=== PATIENT | male | born 1980 | race American Indian/Alaskan Native ===

== ENCOUNTER 2017-04-16 20:57 | Inpatient (IN) | payer OTHER ==
[~2017-04-16] VITALS: Ht 177.8 cm; Wt 87.8 kg
[2017-04-17 00:02] VITALS: BP 164/90
[2017-04-17] MEDS ORDERED: SODIUM CHLORIDE 0.9% 1,000 ML IV SCH (02:31)
[2017-04-17] MEDS ORDERED: DEXTROSE 4 GM TAB.CHEW PO PRN (03:00)
[2017-04-17] MEDS ORDERED: DEXTROSE 50%, 50ML SYRINGE IVPush PRN (03:00)
[2017-04-17] MEDS ORDERED: GLUCAGON 1 MG IM PRN (03:00)
[2017-04-17] MEDS ORDERED: BISACODYL 10 MG SUPP PR PRN (03:00)
[2017-04-17] MEDS ORDERED: ZOLPIDEM 5MG TABLET PO PRN (03:00)
[2017-04-17] MEDS ORDERED: DOCUSATE 100 MG CAPSULE PO PRN (03:00)
[2017-04-17] MEDS ORDERED: ONDANSETRON 2MG/ML, 2ML IVPush PRN (03:00)
[2017-04-17] MEDS: PLEASE ENTER ALLERGIES MC SCH ×10 (03:00→07:00)
[2017-04-17] MEDS: PIPERACILLIN/TAZO/PMX 3.375GM 50 ML IV SCH ×4 (03:26→21:58)
[2017-04-17] MEDS: ENOXAPARIN 40 MG/0.4 ML SQ SCH (03:28)
[2017-04-17] MEDS: INSULIN ASPART 100 UNITS/ML, PEN SQ-INSULIN SCH ×5 (04:06→22:25)
[2017-04-17] MEDS: POTASSIUM CHLORIDE 10 MEQ in SODIUM CHLORIDE 0.9% 1,000 ML IV SCH ×2 (04:16→18:18)
[2017-04-17 04:27] VITALS: BP 158/79
[2017-04-17 06:08] LABS: ASPARTATE AMINO TRANSFERASE 19 U/L (15-37); BLOOD UREA NITROGEN 9 mg/dL (7-18)
[2017-04-17] MEDS: HYDROcodone/APAP 5/325 TABLET PO PRN ×3 (06:58→19:46)
[2017-04-17 08:35] VITALS: BP 154/79
[2017-04-17] MEDS ORDERED: LABETALOL 5MG/ML, 20ML IVPush PRN (09:30)
[2017-04-17] MEDS ORDERED: SODIUM CHLORIDE 0.9% 1,000ML IVBOLUS ONE (11:00)
[2017-04-17] MEDS: SODIUM CHLORIDE FLUSH 10ML SYR IVF SCH ×2 (11:19→21:00)
[2017-04-17] MEDS: INSULIN DETEMIR 100 UNITS/ML, PEN SQ-INSULIN SCH ×2 (11:20→22:26)
[2017-04-17 12:37] VITALS: BP 154/74
[2017-04-17 21:54] VITALS: BP 130/86
[2017-04-18] MEDS: HYDROcodone/APAP 5/325 TABLET PO PRN ×4 (00:58→21:18)
[2017-04-18] MEDS: ENOXAPARIN 40 MG/0.4 ML SQ SCH (03:15)
[2017-04-18] MEDS: PIPERACILLIN/TAZO/PMX 3.375GM 50 ML IV SCH ×4 (03:16→21:18)
[2017-04-18 03:24] VITALS: BP 136/82
[2017-04-18 05:09] LABS: BLOOD UREA NITROGEN 9 mg/dL (7-18)
[2017-04-18 05:13] LABS: ASPARTATE AMINO TRANSFERASE 40 U/L (15-37)
[2017-04-18 07:00] VITALS: BP 154/94
[2017-04-18] MEDS: INSULIN DETEMIR 100 UNITS/ML, PEN SQ-INSULIN SCH ×3 (07:44→16:56)
[2017-04-18] MEDS: INSULIN ASPART 100 UNITS/ML, PEN SQ-INSULIN SCH ×4 (07:44→21:29)
[2017-04-18] MEDS ORDERED: HUM100VI SQ (09:30)
[2017-04-18] MEDS ORDERED: INSU100C5 SQ-INSULIN (09:30)
[2017-04-18] MEDS ORDERED: CETI10TA24 PO (09:30)
[2017-04-18] MEDS: SODIUM CHLORIDE FLUSH 10ML SYR IVF SCH ×2 (09:36→21:18)
[2017-04-18 13:49] VITALS: BP 136/77
[2017-04-18] MEDS: POLYETHYLENE GLYCOL 17 GM PACKET PO PRN (16:00)
[2017-04-18 18:41] VITALS: BP 143/77
[2017-04-19] MEDS: HYDROcodone/APAP 5/325 TABLET PO PRN ×2 (01:45→06:56)
[2017-04-19 01:53] VITALS: BP 148/81
[2017-04-19] MEDS: PIPERACILLIN/TAZO/PMX 3.375GM 50 ML IV SCH ×3 (03:25→15:37)
[2017-04-19] MEDS: ENOXAPARIN 40 MG/0.4 ML SQ SCH (03:25)
[2017-04-19 05:35] LABS: ASPARTATE AMINO TRANSFERASE 56 U/L (15-37); BLOOD UREA NITROGEN 10 mg/dL (7-18)
[2017-04-19 06:49] VITALS: BP 177/83
[2017-04-19] MEDS: hydrALAzine 20 MG/ML, 1ML IVPush PRN (07:23)
[2017-04-19] MEDS: INSULIN ASPART 100 UNITS/ML, PEN SQ-INSULIN SCH ×4 (07:41→21:00)
[2017-04-19] MEDS: SODIUM CHLORIDE FLUSH 10ML SYR IVF SCH ×2 (09:00→21:44)
[2017-04-19] MEDS: SODIUM CHLORIDE 0.9% 1,000 ML IV SCH ×2 (09:41→23:34)
[2017-04-19] MEDS: INSULIN ASPART 70/30 100U/ML, PEN SQ-INSULIN SCH ×2 (09:43→21:43)
[2017-04-19] MEDS: ACETAMINOPHEN 325 MG TABLET PO PRN ×2 (11:20→15:44)
[2017-04-19 12:58] VITALS: BP 140/76
[2017-04-19] MEDS: CIPROFLOXACIN/PMX 400MG/200ML 200 ML IV SCH (14:29)
[2017-04-19 18:25] VITALS: BP 137/69
[2017-04-19 20:36] LABS: PATH.CAST-FLAG NOT PRESENT; SPERM-FLAG NOT PRESENT; SRC-FLAG NOT PRESENT; XTAL-FLAG NOT PRESENT; YLC-FLAG NOT PRESENT
[2017-04-19] MEDS: IBUPROFEN 200 MG TABLET PO PRN (21:42)
[2017-04-20] MEDS: CIPROFLOXACIN/PMX 400MG/200ML 200 ML IV SCH (02:44)
[2017-04-20] MEDS: ENOXAPARIN 40 MG/0.4 ML SQ SCH (02:44)
[2017-04-20 02:54] VITALS: BP 144/82
[2017-04-20 05:32] LABS: ASPARTATE AMINO TRANSFERASE 48 U/L (15-37); BLOOD UREA NITROGEN 13 mg/dL (7-18)
[2017-04-20] MEDS: IBUPROFEN 200 MG TABLET PO PRN ×2 (06:32→21:16)
[2017-04-20 06:34] VITALS: BP 153/97
[2017-04-20 07:40] VITALS: BP 177/90
[2017-04-20] MEDS: ACETAMINOPHEN 325 MG TABLET PO PRN (08:00)
[2017-04-20] MEDS: hydrALAzine 20 MG/ML, 1ML IVPush PRN (08:00)
[2017-04-20] MEDS: INSULIN ASPART 100 UNITS/ML, PEN SQ-INSULIN SCH ×4 (08:01→21:00)
[2017-04-20] MEDS: INSULIN ASPART 70/30 100U/ML, PEN SQ-INSULIN SCH ×2 (08:01→18:31)
[2017-04-20] MEDS: POLYETHYLENE GLYCOL 17 GM PACKET PO PRN (08:26)
[2017-04-20] MEDS: SODIUM CHLORIDE FLUSH 10ML SYR IVF SCH ×2 (08:27→21:00)
[2017-04-20] MEDS: SODIUM CHLORIDE 0.9% 1,000 ML IV SCH ×2 (11:00→21:00)
[2017-04-20] MEDS ORDERED: SODIUM CHLORIDE 0.9% 1,000ML IVBOLUS ONE (11:30)
[2017-04-20] MEDS ORDERED: OMNIPAQUE 350 MG/ML, 100ML BOTTLE ONE (13:05)
[2017-04-20 14:40] VITALS: BP 135/73
[2017-04-20] MEDS ORDERED: LEVOFLOXACIN/PMX 500MG/100ML 100 ML IV SCH (15:00)
[2017-04-20] MEDS ORDERED: HYDR2TAB29 PO (15:12)
[2017-04-20] MEDS: CEFTRIAXONE PMX 1GM/50ML 50 ML IV SCH (15:19)
[2017-04-20 19:30] VITALS: BP 134/78
[2017-04-21 02:38] VITALS: BP 144/86
[2017-04-21] MEDS: ENOXAPARIN 40 MG/0.4 ML SQ SCH ×2 (03:13→22:53)
[2017-04-21 05:49] LABS: BLOOD UREA NITROGEN 9 mg/dL (7-18)
[2017-04-21 05:53] LABS: ASPARTATE AMINO TRANSFERASE 21 U/L (15-37)
[2017-04-21] MEDS: INSULIN ASPART 100 UNITS/ML, PEN SQ-INSULIN SCH ×4 (07:12→21:00)
[2017-04-21 07:23] VITALS: BP 144/82
[2017-04-21] MEDS: INSULIN ASPART 70/30 100U/ML, PEN SQ-INSULIN SCH ×2 (09:04→16:33)
[2017-04-21] MEDS: LEVOFLOXACIN/PMX 500MG/100ML 100 ML IV SCH (09:04)
[2017-04-21] MEDS: SODIUM CHLORIDE FLUSH 10ML SYR IVF SCH ×2 (09:05→21:00)
[2017-04-21] MEDS: IBUPROFEN 200 MG TABLET PO PRN ×2 (10:19→18:17)
[2017-04-21] MEDS: ACETAMINOPHEN 325 MG TABLET PO PRN ×2 (11:51→22:25)
[2017-04-21 12:39] VITALS: BP 166/80
[2017-04-21] MEDS: CEFTRIAXONE PMX 1GM/50ML 50 ML IV SCH (15:04)
[2017-04-21] MEDS: LISINOPRIL 5 MG TABLET PO SCH (15:05)
[2017-04-21] MEDS: SODIUM CHLORIDE 0.9% 1,000 ML IV SCH (18:17)
[2017-04-21 18:24] VITALS: BP 134/75
[2017-04-22 00:23] VITALS: BP 145/76
[2017-04-22] MEDS: SODIUM CHLORIDE 0.9% 1,000 ML IV SCH (01:47)
[2017-04-22] MEDS: ACETAMINOPHEN 325 MG TABLET PO PRN (06:26)
[2017-04-22] MEDS: INSULIN ASPART 100 UNITS/ML, PEN SQ-INSULIN SCH ×3 (06:27→16:33)
[2017-04-22 06:38] VITALS: BP 150/83
[2017-04-22] MEDS: INSULIN ASPART 70/30 100U/ML, PEN SQ-INSULIN SCH (08:24)
[2017-04-22] MEDS: LEVOFLOXACIN/PMX 500MG/100ML 100 ML IV SCH (08:25)
[2017-04-22] MEDS: LISINOPRIL 5 MG TABLET PO SCH (08:25)
[2017-04-22] MEDS: SODIUM CHLORIDE FLUSH 10ML SYR IVF SCH (08:25)
[2017-04-22] MEDS ORDERED: HYDR-3240 PO (15:05)
[2017-04-22] MEDS ORDERED: LEVO500T33 PO (15:05)
[2017-04-22] MEDS ORDERED: LISI5TAB7 PO (15:05)
[2017-04-22 15:53] VITALS: BP 149/85
[2017-04-22 17:28] VITALS: BP 147/87
[2017-04-23] MEDS ORDERED: LEVOFLOXACIN 500 MG TABLET PO SCH (09:00)
== END 2017-04-22 17:35 | disposition home or self-care (01) | DRG 871 ==
LOC: 4NOR 23:42
PROC: 0T9B70Z Drainage of Bladder with Drainage Device, Via Natural or Artificial Opening (ICD-10-PCS; principal; 2017-04-19)
DX: A41.9 Sepsis, unspecified organism (principal); N17.0 Acute kidney failure with tubular necrosis; E87.1 Hypo-osmolality and hyponatremia; R65.20 Severe sepsis without septic shock; I10 Essential (primary) hypertension; N45.3 Epididymo-orchitis; N43.3 Hydrocele, unspecified; K76.0 Fatty (change of) liver, not elsewhere classified; E10.9 Type 1 diabetes mellitus without complications; K59.00 Constipation, unspecified; Z82.3 Family history of stroke; Z79.4 Long term (current) use of insulin; Z82.49 Family history of ischemic heart disease and other diseases of the circulatory system; Z87.891 Personal history of nicotine dependence; Z83.3 Family history of diabetes mellitus
CPT/HCPCS: 36415; 71010; 74177; 76700; 76870; 80053; 81001; 81003; 82962; 83036; 83605; 84145; 85025; 87040; 87491; 87591; 93306; J0696; J0744; J1650; J1815; J1956; J2543; J3480; Q9967; J0360; J7030